=== PATIENT | female | born 1950 | race Caucasian/White ===

== ENCOUNTER 2021-06-22 16:49 | Outpatient (CLI) | payer OTHER, SELFPAY ==
--- NOTE | ~2021-06-22 | MM_ITS ---
EXAMINATION: MM screening [facility] HISTORY: Screening mammogram TECHNIQUE: Craniocaudal and mediolateral oblique 3-D tomosynthesis images were obtained and synthetic 2-D images were generated. CAD analysis was submitted and interpreted. COMPARISON: 10/03/2018 bilateral digital screening mammogram BREAST PARENCHYMAL COMPOSITION: The breasts are almost entirely fatty. FINDINGS: There are some grouped microcalcifications in the posterior aspect of the inner mid right b reast. Magnification views are recommended. Otherwise there is no evidence of suspicious mass, calcification, or architectural distortion to sugg est malignancy in either breast. There has been no other suspicious interval change. IMPRESSION: 1. Grouped microcalcifications in posterior inner mid right breast 2. Diagnostic right mammogram with magnification views is recommended BI-RADS Category 0: Incomplete: Needs additional imaging evaluation. Reviewed, dictated and finalized at location A.
== END 2021-06-22 16:50 | disposition home or self-care (01) ==
LOC: ANHIMG 16:51
PROVIDERS: PCP Internal Medicine; Visit Provider Internal Medicine
DX: Z12.31 Encounter for screening mammogram for malignant neoplasm of breast (principal); R92.8 Other abnormal and inconclusive findings on diagnostic imaging of breast
CPT/HCPCS: 77063; 77067

== ENCOUNTER 2021-07-22 13:14 | Outpatient (CLI) | payer OTHER, SELFPAY ==
--- NOTE | ~2021-07-22 | MM_ITS ---
CORRECTED REPORT YUE ADDED. 07/23/2021 EXAMINATION: MM diagnostic mammo unilat RT HISTORY: Grouped microcalcifications in posterior inner mid right breast on 06/22/2021 bilateral digital screening mammogram TECHNIQUE: Additional 3-D ML tomosynthesis images of the right breast were performed and synthetic 2-D images were generated. Magnification views in ML, MLO and craniocaudal views. CAD analysis was submitted and interpreted. COMPARISON: 06/22/2021 bilateral screening mammogram FINDINGS: Benign calcifications are noted posteriorly in the lower inner right breast. IMPRESSION: 1. Benign calcifications 2. Routine annual mammographic screening is recommended BI-RADS Category 2: Benign finding(s). Reviewed, dictated and finalized at location A. MTDD
== END 2021-07-22 13:15 | disposition home or self-care (01) ==
LOC: ANHIMG 13:16
PROVIDERS: PCP Internal Medicine; Visit Provider Internal Medicine
DX: R92.8 Other abnormal and inconclusive findings on diagnostic imaging of breast (principal)
CPT/HCPCS: 77061; 77065; G0279

== ENCOUNTER 2022-01-27 12:57 | Outpatient (CLI) | payer OTHER, SELFPAY ==
--- NOTE | ~2022-01-27 | DEXA_ITS ---
Bone Density Report Name: JEN JAY V Age: 71 Sex: Female Ethnicity: White Date of : 1950 Indication: osteopenia; height loss; postmenopausal Referring Provider: DERIK COLE Study: Bone densitometry was performed. Exam Date: January 27, 2022 Accession number: [id number] Bone Density: Region BMD T-score Z-score Classification AP Spine(L1-L4) 0.890 -1.4 0.7 Osteopenia Femoral Neck (Left) 0.518 -3.0 -1.2 Osteoporosis Total Hip (Left) 0.664 -2.3 -0.8 Osteopenia Femoral Neck (Right) 0.546 -2.7 -1.0 Osteoporosis Total Hip (Right) 0.676 -2.2 -0.7 Osteopenia Total Hip Mean 0.670 -2.3 -0.8 Osteopenia World Health Organization criteria for BMD impression classify patients as: Normal (T-score at or above -1.0), Osteopenia (T-score between -1.0 and -2.5), or Osteoporosis (T-score at or below -2.5). 10-year Fracture Risk: FRAX not reported because: Some T-score for Spine Total or Hip Total or Femoral Neck at or below -2.5 Previous Exams: Region Exam Age BMD T-score BMD Change BMD Change Date g/cm2 vs Baseline vs Previous AP Spine (L1-L4) 01/27/2022 71 0.890 -1.4 -0.055 (-5.8%) -0.055 (-5.8%) 10/03/2018 68 0.945 -0.9 Total Hip(Left) 01/27/2022 71 0.664 -2.3 -0.128 (-16.2% -0.128 (-16.2% 10/03/2018 68 0.792 -1.2 Total Hip(Right) 01/27/2022 71 0.676 -2.2 -0.083 (-10.9% -0.083 (-10.9% 10/03/2018 68 0.758 -1.5 *Denotes significance at 95% confidence level, LSC for AP Spine = 0.022 g/cm2, LSC for Total Hip = 0.027 g/cm2 Clinical Information Provided by Patient: Has used the following medications: Vitamin D Patient maximum height was 62 Menopause Age: 44 No regular weight bearing exercise Drinks caffeinated beverages Onset of menses at age 18 Number of children 0 Impression: The patient has osteoporosis, based on the Left Femoral Neck T-score. The BMD for the AP Spine (L1-L4) decreased, changing by -5.8% since the last DXA exam. The BMD for the Total Hip(Left) decreased, changing by -16.2% since the last DXA exam. The BMD for the Total Hip(Right) decreased, changing by -10.9% since the last DXA exam. Discussion: INCREASED RISK OF FRACTURE. BONE DENSITY IS UNDESIRABLY LOW AT ONE OR MORE SKELETAL SITES, CONSISTENT WITH POSTMENOPAUSAL OSTEOPOROSIS. This patient's lowest T-score meets the World Health Organization's (WHO) criteria for osteoporosis at one or more sites (T-score -2.5 or below). In untreated patients, the
== END 2022-01-27 12:58 | disposition home or self-care (01) ==
PROVIDERS: PCP Internal Medicine; Visit Provider Internal Medicine
DX: Z78.0 Asymptomatic menopausal state (principal); M85.88 Other specified disorders of bone density and structure, other site; M81.0 Age-related osteoporosis without current pathological fracture
CPT/HCPCS: 77080

== ENCOUNTER 2023-10-03 15:39 | Outpatient (CLI) | payer OTHER, SELFPAY ==
--- NOTE | ~2023-10-03 | MM_ITS ---
EXAMINATION: MM screening [facility] HISTORY: Screening mammogram TECHNIQUE: Craniocaudal and mediolateral oblique 3-D tomosynthesis images were obtained and synthetic 2-D images were generated. CAD analysis was submitted and interpreted. COMPARISON: 07/22/2021, 06/22/2021, 10/03/2018 BREAST PARENCHYMAL COMPOSITION: The breasts are almost entirely fatty. FINDINGS: No suspicious mass, calcification, or architectural distortion are identified in either mei ast to suggest malignancy. There has been no suspicious interval change. IMPRESSION: 1. No mammographic evidence of malignancy. 2. Recommend routine screening mammography in one year. BI-RADS Category 1: Negative Reviewed, dictated and finalized at location A. DESIGN
== END 2023-10-03 15:40 | disposition home or self-care (01) ==
PROVIDERS: PCP Family Medicine; Visit Provider Nurse Practitioner Family
DX: Z12.31 Encounter for screening mammogram for malignant neoplasm of breast (principal)
CPT/HCPCS: 77063; 77067

== ENCOUNTER 2024-12-04 14:47 | Outpatient (CLI) | payer OTHER, SELFPAY ==
--- NOTE | ~2024-12-04 | MM_ITS ---
EXAMINATION: MM screening delia BI w [facility] HISTORY: Screening mammogram TECHNIQUE: Craniocaudal and mediolateral oblique 3-D tomosynthesis images were obtained and synthetic 2-D images were generated. CAD analysis was submitted and interpreted. COMPARISON: 10/03/2023, 06/22/2021, 10/03/2018 BREAST PARENCHYMAL COMPOSITION:Not Dense. The breasts are almost entirely fatty FINDINGS: No suspicious mass, calcification, or architectural distortion are identified in either mei ast to suggest malignancy. There has been no suspicious interval change. IMPRESSION: No mammographic evidence of malignancy. Recommend routine screening mammography in one year. BI-RADS Category 1: Negative Reviewed, dictated and finalized at location . NG OVEN ATTENDANT
--- OUTSIDE RECORDS SUMMARY | 2024-12-04 16:36 | XMS_ITS | Referral Summary ---
Author Organization [facility] Address [address] [place] [address] Care Team Providers Care Research Worker Encyclopedia Name Role Phone Marla Kent MD Primary Care Provider [phone] [facility],non-owned Affiliates and Associated Physician Practices is amultiple site organization consisting of ambulatory clinics and hospital sitesin [place], [place], [place] and [place]. This disclosure is being madepursuant to the Care Everywhere program and may not contain all information available regarding this patient. Last updated 18.[facility] Allergies No known active allergies Medications * Be aware that medications may not be up to date on this document. Alwaysverify current medications with the patient. Medication Sig Dispensed Refills Start Date End Date Status benzonatate (TESSALON) 100 MG capsule Take 1 Cap by mouth 3 times daily as needed for Cough 30 Cap 0 12/03/2015 Active Additional Information Patient not taking.Reported on 01/20/2016 COLCRYS 0.6 MG tablet TAKE ONE TABLET TWICE DAILY 180 Tab 1 09/14/2016 Active allopurinol (ZYLOPRIM) 300 MG tablet TAKE 1 TABLET DAILY 30 tablet 5 08/02/2017 Active Active Problems Problem Noted Date Diagnosed Date BMI 36.0-36.9,adult 06/24/2015 HLD (hyperlipidemia) 10/22/2014 Overview (10/23/2014): 10y ASCVD risk 4% Obesity 10/22/2014 Gout 11/12/2012 Social History Tobacco Use Types Packs/Day Years Used Date Smoking Tobacco: Never Smokeless Tobacco: Never Tobacco Cessation:Counseling Given: Yes Alcohol Use Standard Drinks/Week Comments Yes 0 (1 standard drink = 0.6 oz pur e alcohol) Occasionaly Sex and Gender Information Value Date Recorded Sex Assigned at Not on file Gender Identity Not on file Sexual Orientation Not on file Last Filed Vital Signs Vital Sign Reading Time Taken Comments Blood Pressure 118/82 12/02/2016 10:15 AM [facility] C[facility]TER Pulse 78 12/02/2016 10:15 AM [facility]TER Temperature 36.8 C (98.2 F) 12/02/2016 10:15 AM [facility]TER Respiratory Rate 19 09/02/2015 3:47 PM [facility]TER Oxygen Saturation 95% 12/02/2016 10:15 AM [facility]TER Inhaled Oxygen Concentration - - Weight 88.5 kg (195 lb) 12/02/2016 10:15 AM [facility]TER Height 157.5 cm (5' 2 ) 12/02/2016 10:15 AM [facility] Body Mass Index 35.67 12/02/2016 10:15 AM [facility]TER Plan of Treatment Not on file Goals Goal Patient Goal Type Associated Problems Recent Progress Patient-Stated? Author Exercise 3X per week (30 min per time) Exercise No Octavio Duron Procedures Procedure Name Priority Date/Time Associated Diagnosis Comments MAMMO BILAT SCREENING Routine 12/02/2016 11:43 AM [facility]TER Breast cancer screening ENDOSCOPY, COLON, SCREENING Routine 09/02/2015 1:59 PM [facility] LIPID PROFILE Routine 10/22/2014 1:54 PM [facility] HLD (hyperlipidemia) HEPATITIS C ANTIBODY Routine 10/22/2014 1:54 PM [facility] Need for hepatitis C screening test from Last 3 Months or Most Recently Relevant to Health Maintenance Results * MAMMO SCREENING DIGITAL IMAGE BILAT (12/02/2016 11:43 AM [facility] C[facility]TER) Anatomical Region Laterality Modality Breast Bilateral Mammography 12/02/2016 2:29 PM [facility] Impressions 12/02/2016 3:57 PM [facility] C[facility]TER No mammographic evidence of malignancy in either breast. ASSESSMENT: BIRADS Category 1: Negative mammogram. RECOMMENDATION: Bilateral screening mammogram in one year. Thank you for allowing us to participate in the care of your patient. [facility] utilizes [employer] as a reminder system to notify patients of their next recommended mammogram. Dictated by: Bernice Fink Deldarnell Ghosh M.D., MPH. I, Karina Patel, have personally reviewed the images and I agree with this report. Narrative 12/02/2016 3:57 PM [facility] EXAMINATION: Digital screening mammogram on 12/02/2016. Low-dose full-field digital breast tomosynthesis examination was performed with synthetic 2D images and 3D acquisitions. Computer assisted detection was utilized. PRIOR: Multiple prior mammograms, most recently 10/22/2014 and 01/10/2013. BREAST PARENCHYMAL DENSITY: There are scattered areas of fibroglandular density. RISK ASSESSMENT CALCULATION: Based on the information provided by your patient, her lifetime risk of breast cancer is average (<15%) (calculated at 7% by the BRCAPRO model, 4% by the Tyrer-Cuzick v6 model, and 7% by the Keesha model). Please note this information is only as accurate as the data entered by the patient. FINDINGS: No suspicious masses, areas of architectural distortion or microcalcifications are evident on synthetic 2D mammogram or tomosynthesis images. There has been no significant interval change since the prior examination. Marla Kent MD MAMMO ORDERABLES * ENDOSCOPY, COLON, SCREENING (09/02/2015 1:59 PM [facility]) Report Endoscopy POC _ Patient Name: Gina Tavares Procedure Date: 09/02/2015 1:59 PM Date of : 1950 Admit Type: Outpatient Age: 65 Gender: Female Attending MD: Jamaal Royal MD _ Procedure: Colonoscopy Indications: Screening for colorectal malignant neoplasm Providers: Jamaal Royal MD (Doctor), Ana Kwok RN, Barb Grant, Mitra Hi, Biotechnician Referring MD: Marla Kent (Referring MD) Medicines: Monitored Anesthesia Care Complications: No immediate complications. _ Procedure: Pre-Anesthesia Assessment: - ASA Grade Assessment: II - A patient with mild systemic disease. - Airway Examination: Mallampati Class I (tonsillar pillars visualized). After I obtained informed consent, the scope was passed under direct vision. Throughout the procedure, the patient's blood pressure, pulse, and oxygen saturations were monitored continuously. The Colonoscope was introduced through the anus and advanced to the cecum, identified by appendiceal orifice and ileocecal valve. The colonoscopy was performed without difficulty. The patient tolerated the procedure well. The quality of the bowel preparation was poor. Impression: - Preparation of the colon was poor. - Diverticulosis. - One 5 mm polyp in the descending colon. Resected and retrieved. - Stool. Findings: A few diverticula were found in the colon. A 5 mm polyp was found in the descending colon. The polyp was sessile. The polyp was removed with a cold biopsy forceps. Resection and retrieval were complete. Estimated blood loss: none. A moderate amount of semi-liquid stool was found in the colon, making visualization difficult. Lavage of the area was performed, resulting in clearance with fair visualization. _ Recommendation: - Repeat colonoscopy in 3 - 5 years for surveillance based on pathology results. Procedure Code(s): --- Professional --- 42262, Colonoscopy, flexible; with biopsy, single or multiple --- Technical --- 11400, Colonoscopy, flexible; with biopsy, single or multiple Diagnosis Code(s): --- Professional --- Z12.11, Encounter for screening for malignant neoplasm of colon D12.4, Benign neoplasm of descending colon K57.30, Diverticulosis of large intestine without perforation or abscess without bleeding --- Technical --- Z12.11, Encounter for screening for malignant neoplasm of colon D12.4, Benign neoplasm of descending colon K57.30, Diverticulosis of large intestine without perforation or abscess without bleeding CPT copyright 2014 [employer]. All rights reserved. The codes documented in this report are preliminary and upon pellet machine operator review may be revised to meet current compliance requirements. Jamaal Royal MD 09/02/2015 3:27:56 PM This report has been signed electronically. Number of Addenda: 0 Note Initiated On: 09/02/2015 1:59 PM [facility] ENDOSCOPY 09/02/2015 1:59 PM [facility]TER Jamaal Royal MD GI PROCEDURE ORDERAB LES [facility] ENDOSCOPY * HEPATITIS C ANTIBODY (10/22/2014 1:54 PM [facility]) Hepatitis C Antibody 0.1 0.0 - 0.9 s/co ratio [facility] ACCOUNT BILL Comment: Negative: < 0.8 Indeterminate: 0.8 - 0.9 Positive: > 0.9 . In order to reduce the incidence of a false positive result, the CDC recommends that all s/co ratios between 1.0 and 10.9 be confirmed by a more specific supplemental or PCR testing. [facility] offers HCV Ab w/Reflex to Verification test #[id number]. Blood specimen (specimen) BLOOD SPECIMEN / Unknown 10/22/2014 1:54 PM [facility] 10/22/2014 3:55 PM [facility] Narrative Resulting Agency Comment [facility] [place] [address] [id number] Hayde Castaneda MD LAB - CHEMISTRY KARIME SCHWAB [facility] ACCOUNT BILL * (ABNORMAL) LIPID PROFILE (10/22/2014 1:54 PM [facility]) Cholesterol 250(H) 100 - 199 mg/dL [facility] ACCOUNT BILL Triglycerides 207(H) 0 - 149 mg/dL [facility] ACCOUNT BILL HDL Cholesterol 60 >39 mg/dL [facility] ACCOUNT BILL Comment: According to ATP-III Guidelines, HDL-C >59 mg/dL is considered a negative risk factor for CHD. VLDL Calculated 41(H) 5 - 40 mg/dL [facility] ACCOUNT BILL LDL Calculated 149(H) 0 - 99 mg/dL [facility] ACCOUNT BILL Comment NOT NEEDED [facility] ACCOUNT BILL Comment:Ancillary determined the test is not needed Blood specimen (specimen) BLOOD SPECIMEN / Unknown 10/22/2014 1:54 PM [facility] 10/22/2014 3:55 PM [facility] Narrative Resulting Agency Comment [facility] [place] [address] [id number] Hayde Castaneda MD LAB - CHEMISTRY KARIME SCHWAB Performing Organization Address [facility] Co de Phone Number [facility] ACCOUNT BILL from Last 3 Months or Most Recently Relevant to Health Maintenance Care Teams Research Worker Encyclopedia Relationship Specialty Start Date End Date Marla Kent MD PCP - General 12/17/19
--- OUTSIDE RECORDS SUMMARY | 2024-12-04 16:36 | XMS_ITS | Continuity of Care Document ---
Author Organization [facility] Address [address] [place] [address] Phone Care Team Providers Care Director Consumer Affairs Name Role Phone [facility] Unavailable Unavail able Selma, Silvina Unavailable Unavailable Procedures Procedure Date Frames Deluxe Progressive Lens, Plastic Tint Photochromatic, Plastic Anti-reflective Coating Tax - Medical Eye Exam & Treatment Refraction Advance Directives Directive Yes / No Effective Date File Name No Information Encounters Encounter Description Practice Location Reason(s) For Visit Diagnoses Date Provider Providers Copied on Encounter [facility], [address] [place] [address] [address], [place], [place], [id number], [place] tel:[phone] [facility] No Information 1200 [facility] [address] [facility], [address], [id number], [place]. tel:[phone] Referring Provider: Jeannette Rivas, [address], [place], [address]. tel:[phone] sulting Provider: Silvina Hahn, [address] [place], [address]. tel:[phone] [facility], [address] [place] [address] [address], [place], [place], [id number], [place] tel:[phone] [facility] No Information 200 7 Tonya Machado. [address] , [address], [place], [address], [place]. tel:[phone] Family History Family Member Type Diagnosis Age At Onset No Information Payers Payer name Insurance type Covered libertarian ID Authoriza tion(s) No Information Social History Type Description Quantity Date Captured Comments Sex Female Smoking Status No Information Chief Complaint And Reason For Visit No Information Reason For Referral Reason For Referral No Information History Of Present Illness Encounter Date Complaint History Of Prese nt Illness No Information Functional Status Date Functional Assessmen t No Information Instructions Date Instruction Additional Infor mation No Information Assessments Type Assessment Date No Information Patient Care Teams Name Effective Dates (start - stop) Status Members No Information
--- OUTSIDE RECORDS SUMMARY | 2024-12-04 16:36 | XMS_ITS | Clinical Summary ---
Author Organization [facility] [email or web address] Address [address] [place] [address] Care Team Providers Care Rails Developer Name Role Phone Marla Kent MD Primary Care Provider [phone] [facility] [email or web address],non-owned Affiliates and Associated Physician Practices is amultiple site organization consisting of ambulatory clinics and hospital sitesin [place], [place], [place] and [place]. This disclosure is being madepursuant to the Care Everywhere program and may not contain all information available regarding this patient. Last updated 18.[facility] [email or web address] Allergies No known active allergies Medications * [...] ASCVD risk 4% Obesity 10/22/2014 Gout 11/12/2012 Family History Medical History Relation Name Comments Cancer - Other Father Brain COPD - Chronic Obstructive Pulmonary Disease Mother Cancer Mother endometrial, bl adder Diabetes Mother Gout Mother Hypertension Mother Relation Name Status Comments Father (Age 63) Brain tumo r Mother Social History Tobacco Use Types Packs/Day Years [...] Comments Blood Pressure 118/82 12/02/2016 10:15 AM SHOWCASE MAKER Pulse 78 12/02/2016 10:15 AM SHOWCASE MAKER Temperature 36.8 C (98.2 F) 12/02/2016 10:15 AM SHOWCASE MAKER Respiratory Rate 19 09/02/2015 3:47 PM SHOWCASE MAKER Oxygen Saturation 95% 12/02/2016 10:15 AM SHOWCASE MAKER Inhaled Oxygen Concentration - - Weight 88.5 kg (195 lb) 12/02/2016 10:15 AM SHOWCASE MAKER Height 157.5 cm (5' 2 ) 12/02/2016 10:15 AM SHOWCASE MAKER Body Mass Index 35.67 12/02/2016 10:15 AM SHOWCASE MAKER Plan of Treatment Health Maintenance Due Date Last Done Comments BONE DENSITY TESTING 1950 COLOGUARD (AGES 45-75) - COLON CA SCREENING 1950 CT COLONOGRAPHY - COLON CA SCREENING 1950 FIT - COLON CA SCREENING 1950 FLEX SIG - COLON CA SCREENING 1950 MEDICARE AWV 12 MONTHS 1950 DTAP/TDAP/TD VACCINES (1 - Tdap) 1971 PNEUMOCOCCAL VACCINE 50+ (1 of 1 - PCV) 2002 ZOSTER VACCINE (1 of 2) 2002 LIPID TESTING 10/22/2015 10/22/2014, 11/13/2012 MAMMOGRAM 12/02/2018 12/02/2016, 10/03, 01/10/2013, Additional history exists COLON MONITORING 09/02/2020 09/02/2015, 11/2014, 09/02/2015 Colorectal Cancer Screening 09/02/2020 COVID-19 VACCINE ( - 2023- season) 2024 INFLUENZA VACCINE (#1) 2024 DEPRESSION SCREENING 10/02/2024 MEDICARE AWV CALENDAR YEAR 2024 COLONOSCOPY - COLON CA SCREENING 09/02/2025 09/02/2015, 09/02/2015, 09/02/2015 Respiratory Syncytial Virus (RSV) Vaccine Pt: or over 60 yrs (1 - 1-dose 75+ series) 2027 HEPATITIS C SCREENING Completed 10/22/2014 HEPATITIS B VACCINE Aged Out No longe r eligible based on patient's age to complete this topic HIB VACCINE Aged Out No longer eligi ble based on patient's age to complete this topic HPV VACCINE Aged Out No longer eligi ble based on patient's age to complete this topic MENINGOCOCCAL (Group B) VACCINE Aged Out No longer eligible based on patient's age to complete this topic MENINGOCOCCAL VACCINE Aged Out No lonny katie eligible based on patient's age to complete this topic Goals Goal Patient Goal Type Associated Problems Recent Progress Patient-Stated? Author Exercise 3X per week (30 min per time) Exercise No Octavio Duron Procedures Procedure Name Priority Date/Time Associated Diagnosis Comments MAMMO BILAT SCREENING Routine 12/02/2016 11:43 AM SHOWCASE MAKER Breast cancer screening ENDOSCOPY, COLON, SCREENING Routine 09/02/2015 1:59 PM SHOWCASE MAKER LIPID PROFILE Routine 10/22/2014 1:54 PM SHOWCASE MAKER HLD (hyperlipidemia) HEPATITIS C ANTIBODY Routine 10/22/2014 1:54 PM SHOWCASE MAKER Need for hepatitis C screening test from Last 3 Months or Most Recently Relevant to Health Maintenance Results * MAMMO SCREENING DIGITAL IMAGE BILAT (12/02/2016 11:43 AM SHOWCASE MAKER) Anatomical Region Laterality Modality Breast Bilateral Mammography 12/02/2016 2:29 PM SHOWCASE MAKER Impressions 12/02/2016 3:57 PM SHOWCASE MAKER No mammographic evidence of malignancy in either breast. ASSESSMENT: BIRADS Category 1: Negative mammogram. RECOMMENDATION: Bilateral screening mammogram in one year. Thank you for allowing us to participate in the care of your patient. [facility] utilizes [employer] as a reminder system to notify patients of their next recommended mammogram. Dictated by: Bernice Ghosh M.D. ( Abhi), MPH. I, Karina Patel, have personally reviewed the images and I agree with this report. Narrative 12/02/2016 3:57 PM SHOWCASE MAKER EXAMINATION: Digital screening mammogram on 12/02/2016. Low-dose [...] * ENDOSCOPY, COLON, SCREENING (09/02/2015 1:59 PM SHOWCASE MAKER) Report Endoscopy POC _ Patient Name: Gina Tavares Procedure Date: 09/02/2015 1:59 PM Date of : 1950 Admit Type: Outpatient Age: 65 Gender: Female Attending MD: Jamaal Royal MD _ Procedure: Colonoscopy Indications: Screening for colorectal malignant neoplasm Providers: Jamaal Royal MD (Doctor), Ana Kwok RN, Barb Grant, Mitra Hi, Job Recruiter Referring MD: Marla Kent (Referring MD) Medicines: [...] pathology results. Procedure Code(s): --- Professional --- 04993, Colonoscopy, flexible; with biopsy, single or multiple --- Technical --- 54354, Colonoscopy, flexible; with biopsy, single or multiple [...] or abscess without bleeding CPT copyright 2014 [employer]. All rights reserved. The codes documented in this report are preliminary and upon data coder operator review may be revised to meet current compliance requirements. Jamaal Royal MD 09/02/2015 3:27:56 PM This report has been signed electronically. Number of Addenda: 0 Note Initiated On: 09/02/2015 1:59 PM [facility] ENDOSCOPY 09/02/2015 1:59 PM SHOWCASE MAKER Jmaaal Royal MD GI PROCEDURE ORDERAB LES [facility] ENDOSCOPY * HEPATITIS C ANTIBODY (10/22/2014 1:54 PM SHOWCASE MAKER) Hepatitis C Antibody 0.1 0.0 - 0.9 s/co ratio [facility] ACCOUNT BILL Comment: Negative: < 0.8 Indeterminate: 0.8 - 0.9 Positive: > 0.9 . In order to reduce the incidence of a false positive result, the CDC recommends that all s/co ratios between 1.0 and 10.9 be confirmed by a more specific supplemental or PCR testing. [facility] offers HCV Ab w/Reflex to Verification test #[id number]. Blood specimen (specimen) BLOOD SPECIMEN / Unknown 10/22/2014 1:54 PM SHOWCASE MAKER 10/22/2014 3:55 PM SHOWCASE MAKER Narrative Resulting Agency Comment [address] [phone] Hayde Castaneda MD LAB - CHEMISTRY KARIME SCHWAB [facility] ACCOUNT BILL * (ABNORMAL) LIPID PROFILE (10/22/2014 1:54 PM SHOWCASE MAKER) Cholesterol 250(H) 100 - 199 mg/dL [facility] [...] BLOOD SPECIMEN / Unknown 10/22/2014 1:54 PM SHOWCASE MAKER 10/22/2014 3:55 PM SHOWCASE MAKER Narrative Resulting Agency Comment [facility] [address] [phone] Hayde Castaneda MD LAB - CHEMISTRY KARIME SCHWAB [facility] ACCOUNT BILL from Last 3 Months or Most Recently Relevant to Health Maintenance Care Teams Rails Developer Relationship Specialty Start Date End Date Marla Kent MD [facility] - General 12/17/19
--- OUTSIDE RECORDS SUMMARY | 2024-12-04 16:36 | XMS_ITS | Patient Health Summary ---
Author Organization [facility] [employer] Address [address] [place] [address] Care Team Providers Care Aircraft Life Support Fitter Name Role Phone Marla Kent MD Primary Care Provider [phone] Note from [facility],non-owned Affiliates and Associated Physician Practices is amultiple site organization consisting of ambulatory clinics and hospital sitesin [place], [place], [place] and [place]. This disclosure is being madepursuant to the Care Everywhere program and may not contain all information available regarding this patient. Last updated 18.[facility] Allergies No known active allergies Medications * Be aware that medications may not be up to date on this document. Alwaysverify current medications with the patient. * benzonatate (TESSALON) 100 MG capsule(Started 12/03/2015) Take 1 Cap by mouth 3 times daily as needed for Cough * COLCRYS 0.6 MG tablet(Started 09/14/2016) TAKE ONE TABLET TWICE DAILY 1 refill remaining * allopurinol (ZYLOPRIM) 300 MG tablet(Started 08/02/2017) TAKE 1 TABLET DAILY 5 refills remaining Active Problems Problem Noted Date Diagnosed Date BMI 36.0-36.9,adult 06/24/2015 HLD (hyperlipidemia) 10/22/2014 Obesity 10/22/2014 Gout 11/12/2012 Social History Tobacco [...] Comments Blood Pressure 118/82 12/02/2016 10:15 AM SIGN PAINTER APPRENTICE Pulse 78 12/02/2016 10:15 AM SIGN PAINTER APPRENTICE Temperature 36.8 C (98.2 F) 12/02/2016 10:15 AM SIGN PAINTER APPRENTICE Respiratory Rate 19 09/02/2015 3:47 PM SIGN PAINTER APPRENTICE Oxygen Saturation 95% 12/02/2016 10:15 AM SIGN PAINTER APPRENTICE Inhaled Oxygen Concentration - - Weight 88.5 kg (195 lb) 12/02/2016 10:15 AM SIGN PAINTER APPRENTICE Height 157.5 cm (5' 2 ) 12/02/2016 10:15 AM SIGN PAINTER APPRENTICE Body Mass Index 35.67 12/02/2016 10:15 AM SIGN PAINTER APPRENTICE Procedures * MAMMO BILAT SCREENING(Performed 12/02/2016) Performed for Breast cancer screening * PAP LB RFLX HPV ASCU(Performed 12/02/2016) Performed for Well woman exam with routine gynecological exam * PATHOLOGY TISSUE EXAM (STL)(Performed 09/02/2015) Performed for Special screening for malignant neoplasms, colon * COLONOSCOPY BIOPSY (ANY METHOD)(Performed 09/02/2015) Performed for Special screening for malignant neoplasms, colon * COLONOSCOPY SCREEN(Performed 09/02/2015) Performed for Special screening for malignant neoplasms, colon * ENDOSCOPY, COLON, SCREENING(Performed 09/02/2015) * URIC ACID BLOOD(Performed 03/10/2015) Performed for Gout * BASIC METABOLIC PANEL (CALCIUM TOTAL)(Performed 03/10/2015) Performed for Gout * MAMMO BILAT SCREENING(Performed 10/22/2014) Performed for Other screening mammogram * HEPATITIS C ANTIBODY(Performed 10/22/2014) Performed for Need for hepatitis C screening test * CBC W AUTO DIFFERENTIAL(Performed 10/22/2014) Performed for HLD (hyperlipidemia), Obesity * COMPREHENSIVE METABOLIC PANEL(Performed 10/22/2014) Performed for HLD (hyperlipidemia), Obesity * LIPID PROFILE(Performed 10/22/2014) Performed for HLD (hyperlipidemia) * URIC ACID BLOOD(Performed 10/22/2014) Performed for Gout * PAP LB HPV HR DNA(Performed 02/12/2013) Performed for Routine Gynecological Examination * MAMMO BILAT SCREENING(Performed 01/10/2013) Performed for Other screening mammogram * URIC ACID BLOOD(Performed 11/13/2012) Performed for Gout * LIPID PROFILE(Performed 11/13/2012) Performed for Obesity * COMPREHENSIVE METABOLIC PANEL(Performed 11/13/2012) Performed for Gout * CBC W AUTO DIFFERENTIAL(Performed 11/13/2012) Performed for Gout Results * MAMMO SCREENING DIGITAL IMAGE BILAT (12/02/2016 11:43 AM SIGN PAINTER APPRENTICE) Only the most recent of3 resultswithin the time period is included. Anatomical Region Laterality Modality Breast Bilateral Mammography 12/02/2016 2:29 PM SIGN PAINTER APPRENTICE Impressions 12/02/2016 3:57 PM SIGN PAINTER APPRENTICE No mammographic evidence of malignancy in either breast. ASSESSMENT: BIRADS Category 1: Negative mammogram. RECOMMENDATION: Bilateral screening mammogram in one year. Thank you for allowing us to participate in the care of your patient. [facility] utilizes [email or web address] as a reminder system to notify patients of their next recommended mammogram. Dictated by: Bernice Ghosh M.D. ( Abhi), MPH. I, Karina Patel, have personally reviewed the images and I agree with this report. Narrative 12/02/2016 3:57 PM SIGN PAINTER APPRENTICE EXAMINATION: Digital screening mammogram on 12/02/2016. Low-dose [...] examination. Marla Kent MD MAMMO ORDERABLES * PAP SMEAR LB RFLX HPV ASCU (PO REF LAB) (12/02/2016 11:09 AM SIGN PAINTER APPRENTICE) Diagnosis [facility] INSURANCE BILL Comment:NEGATIVE FOR INTRAEP ITHELIAL LESION AND MALIGNANCY. Specimen Adequacy [facility] INSURANCE BILL Comment: Satisfactory for evaluation. Endocervical and/or squamous metaplastic cells (endocervical component) are present. Clinician Provided ICD10 [facility] INSURANCE BILL Comment: Z00.00 Z01.419 Z12.39 E78.5 Performed by [facility] INSURANCE BILL Comment:Ty eBckford chnologist (ASCP) Comment . [facility] INSURANCE BILL Note [facility] INSURANCE BILL Comment: The Pap smear is a screening test designed to aid in the detection of premalignant and malignant conditions of the uterine cervix. It is not a diagnostic procedure and should not be used as the sole means of detecting cervical cancer. Both false-positive and false-negative reports do occur. . Note [facility] INSURANCE BILL Comment: The HPV DNA reflex criteria were not met with this specimen result therefore, no HPV testing was performed. . Pathology/Cytolog y PART OF UTERINE CERVIX / Unknown 12/02/2016 11:09 AM SIGN PAINTER APPRENTICE 12/02/2016 Narrative [facility] INSURANCE BILL - 12/06/2016 5:10 PM SIGN PAINTER APPRENTICE Source.............Cervix No. of containers..01 CYTYC Thin Prep Vial Resulting Agency Comment formerly [facility] [address] [phone] Marla Kent MD LAB - PATHOLOGY/CYTO LOGY ORDERABLES [facility] INSURANCE BILL [address] [place] [address] * GROSS + MICRO EXAM (STL) (09/02/2015 3:23 PM SIGN PAINTER APPRENTICE) Case Report Surgical Pathology Report Case: [id number] Authorizing Provider: Jamaal Royal MD Collected: 09/02/2015 03:23 PM Ordering Location: [facility] Received: 09/03/2015 12:11 PM Pathologist: Yaquelin Bradley MD Specimen: Polyp Descending, desc colon polyp 09/04/2015 3:51 PM SIGN PAINTER APPRENTICE [facility] Final Diagnosis 1. Descending colon, polyp, biopsy: -- Hyperplastic polyp MC/scs 09/04/2015 3:51 PM SIGN PAINTER APPRENTICE [facility] Gross Description Received in formalin in a container labeled Gina Tavares V, polyp descending. The container holds a single pink-bourne tissue fragment measuring 0.3 x 0.3 x 0.2 cm. Specimen is entirely submitted in a cassette labeled A1. DYT/lv 09/04/2015 3:51 PM SIGN PAINTER APPRENTICE [facility] Microscopic Description Sections show fragments of colonic mucosa with features of benign hyperplastic polyp. /[facility] 09/04/2015 3:51 PM SIGN PAINTER APPRENTICE [facility] Pathology/Cytolo gy POLYP / Unknown 09/02/2015 3:23 PM SIGN PAINTER APPRENTICE 09/03/2015 12:11 PM SIGN PAINTER APPRENTICE Jamaal Royal MD LAB - PATHOLOGY/CYTO LOGY ORDERABLES Performing Organization Address City/State/[facility] Co de Phone Number [facility] [address] [place] [address] * ENDOSCOPY, COLON, SCREENING (09/02/2015 1:59 PM SIGN PAINTER APPRENTICE) Report Endoscopy POC _ Patient Name: Gina Tavares Procedure Date: 09/02/2015 1:59 PM Date of : 1950 Admit Type: Outpatient Age: 65 Gender: Female Attending MD: Jamaal Royal MD _ Procedure: Colonoscopy Indications: Screening for colorectal malignant neoplasm Providers: Jamaal Royal MD (Doctor), Ana Kwok, RN, Barb Grant, Mitra Hi, Revenue Enforcement Collection Agent Referring MD: Marla Kent (Referring MD) Medicines: [...] pathology results. Procedure Code(s): --- Professional --- 00247, Colonoscopy, flexible; with biopsy, single or multiple --- Technical --- 45914, Colonoscopy, flexible; with biopsy, single or multiple [...] or abscess without bleeding CPT copyright 2014 [employer]. All rights reserved. The codes documented in this report are preliminary and upon medical delivery driver review may be revised to meet current compliance requirements. Jamaal Royal MD 09/02/2015 3:27:56 PM This report has been signed electronically. Number of Addenda: 0 Note Initiated On: 09/02/2015 1:59 PM [facility] 09/02/2015 1:59 PM SIGN PAINTER APPRENTICE Jamaal Royal MD GI PROCEDURE ORDERAB LES [facility] * URIC ACID BLOOD (03/10/2015 12:52 PM CDT) Only the most recent of3 resultswithin the time period is included. Uric Acid 6.1 2.5 - 7.1 mg/dL [facility] ACCOUNT BILL Comment:Therapeutic target f or gout patients: <6.0 Blood specimen (specimen) BLOOD SPECIMEN / Unknown 03/10/2015 12:52 PM CDT 03/10/2015 3:44 PM CDT Narrative Resulting Agency Comment [facility] [address] [phone] Hayde Castaneda MD LAB - CHEMISTRY KARIME SCHWAB [facility] ACCOUNT BILL * (ABNORMAL) BASIC METABOLIC PANEL (BMP) (03/10/2015 12:52 PM CDT) Glucose 88 65 - 99 mg/dL [facility] ACCOUNT BILL BUN 18 8 - 27 mg/dL [facility] ACCOUNT BILL Creatinine 1.08(H) 0.57 - 1.00 mg/dL [facility] ACCOUNT BILL eGFR by MDRD 55(L) >59 mL/min/1.7 3 [facility] ACCOUNT BILL eGFR by MDRD 64 >59 mL/min/1.7 3 [facility] ACCOUNT BILL BUN/Creatinine Ratio 17 11 - 26 [facility] ACCOUNT BILL Sodium 140 134 - 144 mmol/L [facility] ACCOUNT BILL Potassium 4.2 3.5 - 5.2 mmol/L [facility] ACCOUNT BILL Chloride 102 97 - 108 mmol/L [facility] ACCOUNT BILL CO2 22 18 - 29 mmol/L [facility] ACCOUNT BILL Calcium 11.0(H) 8.7 - 10.3 mg/dL [facility] ACCOUNT BILL Blood specimen (specimen) BLOOD SPECIMEN / Unknown 03/10/2015 12:52 PM CDT 03/10/2015 3:44 PM CDT Narrative Resulting Agency Comment [facility] [address] [phone] Hayde Castaneda MD LAB - CHEMISTRY KARIME SCHWAB [facility] ACCOUNT BILL * CBC W AUTO DIFFERENTIAL (10/22/2014 1:54 PM SIGN PAINTER APPRENTICE) Only the most recent of2 resultswithin the time period is included. WBC 7.4 3.4 - 10.8 x10E3/uL [facility] ACCOUNT BILL RBC 5.04 3.77 - 5.28 x10E6/uL [facility] ACCOUNT BILL Hemoglobin 15.0 11.1 - 15.9 g/dL [facility] ACCOUNT BILL Hematocrit 45.4 34.0 - 46.6 % [facility] ACCOUNT BILL MCV 90 79 - 97 fL [facility] ACCOUNT BILL MCH 29.8 26.6 - 33.0 pg [facility] ACCOUNT BILL MCHC 33.0 31.5 - 35.7 g/dL [facility] ACCOUNT BILL RDW 13.4 12.3 - 15.4 % [facility] ACCOUNT BILL Platelet Count 344 150 - 379 x10E3/uL [facility] ACCOUNT BILL Granulocytes % 53 % [facility] ACCOUNT BILL Lymphocytes % 32 % [facility] ACCOUNT BILL Monocytes % 11 % [facility] ACCOUNT BILL Eosinophils % 3 % [facility] ACCOUNT BILL Basophils % 1 % [facility] ACCOUNT BILL Immature Cells NOT NEEDED [facility] ACCOUNT BILL Comment:Ancillary determined the test is not needed Granulocytes Absolute 3.9 1.4 - 7.0 x10E3/uL [facility] ACCOUNT BILL Lymphocytes Absolute 2.4 0.7 - 3.1 x10E3/uL [facility] ACCOUNT BILL Monocytes Absolute 0.8 0.1 - 0.9 x10E3/uL [facility] ACCOUNT BILL Eosinophils Absolute 0.2 0.0 - 0.4 x10E3/uL [facility] ACCOUNT BILL Basophils Absolute 0.1 0.0 - 0.2 x10E3/uL [facility] ACCOUNT BILL Immature Granulocytes 0 % [facility] ACCOUNT BILL Immature Granulocytes Absolute 0.0 0.0 - 0.1 x10E3/uL [facility] ACCOUNT BILL nRBC NOT NEEDED [facility] ACCOUNT BILL Comment:Ancillary determined the test is not needed Comment Hematology NOT NEEDED [facility] ACCOUNT BILL Comment:Ancillary determined the test is not needed Blood specimen (specimen) BLOOD SPECIMEN / Unknown 10/22/2014 1:54 PM SIGN PAINTER APPRENTICE 10/22/2014 3:55 PM SIGN PAINTER APPRENTICE Narrative Resulting Agency Comment [facility] [address] [phone] Hayde Castaneda MD LAB - HEMATOLOGY ORD ERABLES [facility] ACCOUNT BILL * (ABNORMAL) COMPREHENSIVE METABOLIC PANEL (10/22/2014 1:54 PM SIGN PAINTER APPRENTICE) Only the most recent of2 resultswithin the time period is included. Glucose 82 65 - 99 mg/dL [facility] ACCOUNT BILL BUN 18 8 - 27 mg/dL [facility] ACCOUNT BILL Creatinine 0.88 0.57 - 1.00 mg/dL [facility] ACCOUNT BILL eGFR by MDRD 71 >59 mL/min/1.7 3 [facility] ACCOUNT BILL eGFR by MDRD 81 >59 mL/min/1.7 3 [facility] ACCOUNT BILL BUN/Creatinine Ratio 20 11 - 26 [facility] ACCOUNT BILL Sodium 140 134 - 144 mmol/L [facility] ACCOUNT BILL Potassium 4.7 3.5 - 5.2 mmol/L [facility] ACCOUNT BILL Chloride 101 97 - 108 mmol/L [facility] ACCOUNT BILL CO2 21 18 - 29 mmol/L [facility] ACCOUNT BILL Calcium 10.6(H) 8.7 - 10.3 mg/dL [facility] ACCOUNT BILL Comment:Please note refere nce interval change Protein Total 7.6 6.0 - 8.5 g/dL [facility] ACCOUNT BILL Albumin 4.7 3.6 - 4.8 g/dL [facility] ACCOUNT BILL Globulin Total 2.9 1.5 - 4.5 g/dL [facility] ACCOUNT BILL Albumin/Globulin Ratio 1.6 1.1 - 2.5 [facility] ACCOUNT BILL Bilirubin Total 0.5 0.0 - 1.2 mg/dL [facility] ACCOUNT BILL Alkaline Phosphatase 99 39 - 117 IU/L [facility] ACCOUNT BILL AST 34 0 - 40 IU/L [facility] ACCOUNT BILL ALT 66(H) 0 - 32 IU/L [facility] ACCOUNT BILL Blood specimen (specimen) BLOOD SPECIMEN / Unknown 10/22/2014 1:54 PM SIGN PAINTER APPRENTICE 10/22/2014 3:55 PM SIGN PAINTER APPRENTICE Narrative Resulting Agency Comment [facility] [address] [place] [phone] Hayde Castaneda MD LAB - CHEMISTRY KARIME [facility] Organization Address City/State/ZIP Co de Phone Number [facility] ACCOUNT BILL * HEPATITIS C ANTIBODY (10/22/2014 1:54 PM SIGN PAINTER APPRENTICE) Hepatitis C Antibody 0.1 0.0 - 0.9 s/co ratio [facility] ACCOUNT BILL Comment: Negative: < 0.8 Indeterminate: 0.8 - 0.9 Positive: > 0.9 . In order to reduce the incidence of a false positive result, the CDC recommends that all s/co ratios between 1.0 and 10.9 be confirmed by a more specific supplemental or PCR testing. [facility] w/Reflex to Verification test #[id number]. Blood specimen (specimen) BLOOD SPECIMEN / Unknown 10/22/2014 1:54 PM SIGN PAINTER APPRENTICE 10/22/2014 3:55 PM SIGN PAINTER APPRENTICE Narrative Resulting Agency Comment [facility] [address] [facility] [phone] Hayde Castaneda MD LAB - CHEMISTRY KARIME SCHWAB [facility] ACCOUNT BILL * (ABNORMAL) LIPID PROFILE (10/22/2014 1:54 PM SIGN PAINTER APPRENTICE) Only the most recent of2 resultswithin the time period is included. Cholesterol 250(H) 100 - 199 mg/dL [facility] [...] BLOOD SPECIMEN / Unknown 10/22/2014 1:54 PM SIGN PAINTER APPRENTICE 10/22/2014 3:55 PM SIGN PAINTER APPRENTICE Narrative Resulting Agency Comment [facility] [phone] Hayde Castaneda MD LAB - CHEMISTRY KARIME SCHWAB [facility] ACCOUNT BILL * PAP SMEAR LB HPV HR (PO REF LAB) (02/12/2013 2:38 PM CDT) Diagnosis [facility] INSURANCE BILL Comment: NEGATIVE FOR INTRAEPITHELIAL LESION AND MALIGNANCY. PREDOMINANCE OF COCCOBACILLI CONSISTENT WITH SHIFT IN VAGINAL HERB IS PRESENT. Specimen Adequacy [facility] INSURANCE BILL Comment: Satisfactory for evaluation. Endocervical and/or squamous metaplastic cells (endocervical component) are present. Clinician Provided ICD9 [facility] INSURANCE BILL Comment: 274.9 ; Gout, unspecified V70.0 ; Routine general medical examination at health care facility V72.31 ; Routine gynecological examination V76.51 ; Special screening for malignant neoplasms, colon Performed by [facility] INSURANCE BILL Comment:Thalia Blanco, Emergency Medicine Physician Assistant (ASCP) Comment . [facility] INSURANCE BILL Note [facility] INSURANCE BILL Comment: The Pap smear is a screening test designed to aid in the detection of premalignant and malignant conditions of the uterine cervix. It is not a diagnostic procedure and should not be used as the sole means of detecting cervical cancer. Both false-positive and false-negative reports do occur. . Human papillomavirus High Risk Negative Negative [facility] INSURANCE BILL Comment: This high-risk HPV test detects thirteen high-risk types (16/18/31/33/35/39/45/51/52/56/58/59/68) without differentiation. . MICROSCOPIC CYTOLOGIC EXAMINATION OF SMEAR OF SPECIMEN FROM FEMALE GENITAL TRACT PREPARED USING PAPANICOLAOU TECHNIQUE / Unknown 02/12/2013 2:38 PM CDT 02/13/2013 1:04 AM CDT Narrative [facility] INSURANCE BILL - 02/15/2013 8:06 PM CDT No. of containers..01 CYTYC Thin Prep Vial Resulting Agency Comment [facility] [place] [phone] Hayde Castaneda MD LAB - PATHOLOGY/CYTO LOGY ORDERABLES [facility] INSURANCE BILL Care Teams Aircraft Life Support Fitter Relationship Specialty Start Date End Date Marla Kent MD PCP - General 12/17/19
== END 2024-12-04 14:48 | disposition home or self-care (01) ==
LOC: ANHIMG 14:49
PROVIDERS: PCP Nurse Practitioner Family; Visit Provider Nurse Practitioner Family
DX: Z12.31 Encounter for screening mammogram for malignant neoplasm of breast (principal)
CPT/HCPCS: 77063; 77067

== ENCOUNTER 2025-03-12 11:08 | Outpatient (CLI) | payer OTHER, SELFPAY ==
--- NOTE | ~2025-03-12 | DEXA_ITS ---
Bone Density Report Name: JEN JAY V Age: 74 Sex: Female Ethnicity: White Date of : 1950 Indication: osteopenia; height loss; Referring Provider: KEESHA PEARSON Study: Bone densitometry was performed. Exam Date: March 12, 2025 Accession number: [id number] Bone Density: Region BMD T-score Z-score Classification AP Spine(L1-L4) 0.827 -2.0 0.3 Osteopenia Femoral Neck (Left) 0.485 -3.3 -1.3 Osteoporosis Total Hip (Left) 0.631 -2.5 -0.9 Osteoporosis Femoral Neck (Right) 0.504 -3.1 -1.2 Osteoporosis Total Hip (Right) 0.617 -2.7 -1.0 Osteoporosis Total Hip Mean 0.624 -2.6 -1.0 Osteoporosis World Health Organization criteria for BMD impression classify patients as: Normal (T-score at or above -1.0), Osteopenia (T-score between -1.0 and -2.5), or Osteoporosis (T-score at or below -2.5). 10-year Fracture Risk: FRAX not reported because: Some T-score for Spine Total or Hip Total or Femoral Neck at or below -2.5 Previous Exams: Region Exam Age BMD T-score BMD Change BMD Change Date g/cm2 vs Baseline vs Previous AP Spine (L1-L4) 03/12/2025 74 0.827 -2.0 -0.119 (-12.6% -0.064 (-7.2%) 01/27/2022 71 0.890 -1.4 -0.055 (-5.8%) -0.055 (-5.8%) 10/03/2018 68 0.945 -0.9 Total Hip(Left) 03/12/2025 74 0.631 -2.5 -0.160 (-20.3% -0.032 (-4.9%) 01/27/2022 71 0.664 -2.3 -0.128 (-16.2% -0.128 (-16.2% 10/03/2018 68 0.792 -1.2 Total Hip(Right) 03/12/2025 74 0.617 -2.7 -0.141 (-18.6% -0.058 (-8.6%) 01/27/2022 71 0.676 -2.2 -0.083 (-10.9% -0.083 (-10.9% 10/03/2018 68 0.758 -1.5 *Denotes significance at 95% confidence level, LSC for AP Spine = 0.022 g/cm2, LSC for Total Hip = 0.027 g/cm2 Clinical Information Provided by Patient: Has used the following medications: Vitamin D Patient maximum height was 62 Menopause Age: 44 No regular weight bearing exercise Does not regularly consume dairy products Drinks caffeinated beverages Onset of menses at age 18 Number of children 0 Impression: The patient has osteoporosis, based on the Left Femoral Neck T-score. The BMD for the AP Spine (L1-L4) decreased, changing by -7.2% since the last DXA exam. The BMD for the Total Hip(Left) decreased, changing by -4.9% since the last DXA exam. The BMD for the Total Hip(Right) decreased, changing by -8.6% since the last DXA exam. Discussion: INCREASED RISK OF FRACTURE. BONE DENSITY IS UNDESIRABLY LOW AT ONE OR MORE SKELETAL SITES, CONSISTENT WITH POSTMENOPAUSAL OSTEOPOROSIS. This patient's lowest T-score meets the World Health Organization's (WHO) criteria for osteoporosis at one or more sites (T-score -2.5 or below). In untreated patients, the risk of osteoporotic fracture increases approximately two-fold for each 1.0 SD decrease in T-score. Low bone density is not the only risk factor for fracture; also consider factors such as patient's age, frailty or poor health, risk of falling, risk of injury, previous osteoporotic fracture, family history of osteoporosis, cigarette smoking, low body weight, etc. Not everyone with low bone mineral density has osteoporosis; osteomalacia and other metabolic bone disorders should also be considered. Patients who have osteoporosis should be evaluated for specific diseases and conditions (secondary causes) that may cause or contribute to bone loss. The [place] [employer]ocrinologists (AACE) and National Osteoporosis Foundation (NOF) recommend pharmacologic intervention for all postmenopausal women whose T-score is in this range. The patient should follow a healthful lifestyle (good nutrition with adequate calcium and vitamin D, and appropriate weight-bearing exercise). Follow-Up: Consider a repeat BMD and Vertebral Fracture Assessment (VFA) exam in 2 years or sooner if medically necessary, to reassess this patient's status. Reported by: KTAIA on 03/12/2025 11:47:00 AM. Reviewed, dictated and finalized at location A.
--- OUTSIDE RECORDS SUMMARY | 2025-03-12 13:21 | XMS_ITS | Continuity of Care Document ---
Author Organization [facility] [place], [place] Address [address] [place] [address] Phone Care Team Providers Care Land[employer] Collection System Operator Name Role Phone [facility], [facility] Unavailable Unavail able Selma, Silvina Unavailable Unavailable Procedures Procedure Date Frames Deluxe Progressive Lens, Plastic Tint Photochromatic, Plastic Anti-reflective Coating Tax - Medical Eye Exam & Treatment Refraction Advance Directives Directive Yes / No Effective Date File Name No Information Encounters Encounter Description Practice Location Reason(s) For Visit Diagnoses Date Provider Providers Copied on Encounter [facility], [address] [place] [address] [address], [place], [place], [id number], [place] tel:[phone] [facility] No Information 1200 7 [facility] [address] [facility], [address], [id number], [place]. tel:[phone] Referring Provider: Jeannette Rivas, [address], [place], [address]. tel:[phone] sulting Provider: Silvina Hahn, [address] [place], [address]. tel:[phone] [facility], [id number] [address] [address], [place], [place], [id number], [place] tel:[phone] [facility] No Information 200 [address] Tonya Machado. [address] , [address], [place], [address], [place]. tel:[phone] Family History Family Member Type Diagnosis Age [...]
--- OUTSIDE RECORDS SUMMARY | 2025-03-12 13:21 | XMS_ITS | Clinical Summary ---
Author Organization [facility] Address [address] [place] [address] Care Team Providers Care School Transportation Director Name Role Phone Marla Kent MD Primary Care Provider [phone] Source Comments [facility],non-owned Affiliates and Associated Physician Practices is amultiple site organization consisting of ambulatory clinics and hospital sitesin [place], [place], [place] and [place]. This disclosure is being madepursuant to the Care Everywhere program and may not contain all information available regarding this patient. Last updated 18.[facility] Allergies No known active allergies Medications * Be aware that medications may not be up to date on this document. Alwaysverify current medications with the patient. benzonatate (TESSALON) 100 MG capsule Take 1 Cap by mouth 3 times daily as needed for Cough 30 Cap 0 6 Active Additional Information Patient not taking.Reported on 01/20/2016 COLCRYS 0.6 MG tablet TAKE ONE TABLET TWICE DAILY 180 Tab 1 6 Active allopurinol (ZYLOPRIM) 300 MG tablet TAKE 1 TABLET DAILY 30 tablet 5 7 Active Active Problems Problem Noted Date Diagnosed [...] = 0.6 oz pur e alcohol) Occasionaly Comments No Sex and Gender Information Value Date Recorded Sex Assigned at Not on file Legal Sex Female 2:03 PM TELECOMMUNICATIONS SWITCH TECHNICIAN Gender Identity Not on file Sexual Orientation Not on file Occupation Industry Job Start Date Job End Date Not on file Not on file Not on file Not on file Last Filed Vital Signs Vital Sign Reading Time Taken Comments Blood Pressure 118/82 12/02/2016 10:15 AM TELECOMMUNICATIONS SWITCH TECHNICIAN Pulse 78 12/02/2016 10:15 AM TELECOMMUNICATIONS SWITCH TECHNICIAN Temperature 36.8 C (98.2 F) 12/02/2016 10:15 AM TELECOMMUNICATIONS SWITCH TECHNICIAN Respiratory Rate 19 09/02/2015 3:47 PM TELECOMMUNICATIONS SWITCH TECHNICIAN Oxygen Saturation 95% 12/02/2016 10:15 AM TELECOMMUNICATIONS SWITCH TECHNICIAN Inhaled Oxygen Concentration - - Weight 88.5 kg (195 lb) 12/02/2016 10:15 AM TELECOMMUNICATIONS SWITCH TECHNICIAN Height 157.5 cm (5' 2) 12/02/2016 10:15 AM TELECOMMUNICATIONS SWITCH TECHNICIAN Body Mass Index 35.67 12/02/2016 10:15 AM TELECOMMUNICATIONS SWITCH TECHNICIAN Plan of Treatment Health Maintenance Due Date Last Done Comments BONE DENSITY TESTING 1950 COLOGUARD (AGES 45-75) - COLON CA SCREENING 1950 CT COLONOGRAPHY - COLON CA SCREENING 1950 FIT - COLON CA SCREENING 1950 FLEX SIG - COLON CA SCREENING 1950 DTAP/TDAP/TD VACCINES (1 - Tdap) 1971 PNEUMOCOCCAL VACCINE 50+ (1 of 1 - PCV) 2002 ZOSTER VACCINE (1 of 2) 2002 LIPID TESTING 10/22/2015 10/22/2014, 11/13/2012 MAMMOGRAM 12/02/2018 12/02/2016, 10/03, 01/10/2013, Additional history exists COLON MONITORING 09/02/2020 09/02/2015, 11/2014, 09/02/2015 Colorectal Cancer Screening 09/02/2020 COVID-19 VACCINE ( season) 2024 DEPRESSION SCREENING 10/02/2024 INFLUENZA VACCINE (Season Ended) 2025 COLONOSCOPY - COLON CA SCREENING 09/02/2025 09/02/2015, [...] complete this topic MENINGOCOCCAL (Group B) VACCINE SHARED DECISION-MAKING Aged Out No longer eligible based on patient's age to complete this topic MENINGOCOCCAL GROUPS A/C/Y/W VACCINE Aged Out No longer eligible based on patient's age to complete this topic Goals Goal Patient Goal Type Associated Problems Recent Progress Patient-Stated? Author Exercise 3X per week (30 min per time) Exercise No Octavio Duron Procedures Procedure Name Priority Date/Time Associated Diagnosis Comments MAMMO BILAT SCREENING Routine 12/02/2016 11:43 AM TELECOMMUNICATIONS SWITCH TECHNICIAN Breast cancer screening ENDOSCOPY, COLON, SCREENING Routine 09/02/2015 1:59 PM TELECOMMUNICATIONS SWITCH TECHNICIAN LIPID PROFILE Routine 10/22/2014 1:54 PM TELECOMMUNICATIONS SWITCH TECHNICIAN HLD (hyperlipidemia) HEPATITIS C ANTIBODY Routine 10/22/2014 1:54 PM TELECOMMUNICATIONS SWITCH TECHNICIAN Need for hepatitis C screening test from Last 3 Months or Most Recently Relevant to Health Maintenance Results * MAMMO SCREENING DIGITAL IMAGE BILAT (12/02/2016 11:43 AM TELECOMMUNICATIONS SWITCH TECHNICIAN) Anatomical Region Laterality Modality Breast Bilateral Mammography 12/02/2016 2:29 PM TELECOMMUNICATIONS SWITCH TECHNICIAN Impressions 12/02/2016 3:57 PM TELECOMMUNICATIONS SWITCH TECHNICIAN No mammographic evidence of malignancy in either breast. ASSESSMENT: BIRADS Category 1: Negative mammogram. RECOMMENDATION: Bilateral screening mammogram in one year. Thank you for allowing us to participate in the care of your patient. [facility] utilizes [employer] as a reminder system to notify patients of their next recommended mammogram. Dictated by: Bernice Ghosh M.D. ( Abhi), MPH. I, Karina Patel, have personally reviewed the images and I agree with this report. Narrative 12/02/2016 3:57 PM TELECOMMUNICATIONS SWITCH TECHNICIAN EXAMINATION: Digital screening mammogram on 12/02/2016. Low-dose [...] significant interval change since the prior examination. us Marla Kent MD MAMMO ORDERABLES Final Resul t * ENDOSCOPY, COLON, SCREENING (09/02/2015 1:59 PM TELECOMMUNICATIONS SWITCH TECHNICIAN) Report Endoscopy POC _ Patient Name: Gina Jay Procedure Date: 09/02/2015 1:59 PM Date of : 1950 Admit Type: Outpatient Age: 65 Gender: Female Attending MD: Jamaal Royal MD _ Procedure: Colonoscopy Indications: Screening for colorectal malignant neoplasm Providers: Jamaal Royal MD (Doctor), Ana Kwok, RN, Barb Grant, Mitra Hi, Voice Engineer Referring MD: Marla Kent (Referring MD) Medicines: [...] pathology results. Procedure Code(s): --- Professional --- 17210, Colonoscopy, flexible; with biopsy, single or multiple --- Technical --- 73129, Colonoscopy, flexible; with biopsy, single or multiple [...] or abscess without bleeding CPT copyright 2014 [employer]. All rights reserved. The codes documented in this report are preliminary and upon system sales consultant review may be revised to meet current compliance requirements. Jamaal Royal MD 09/02/2015 3:27:56 PM This report has been signed electronically. Number of Addenda: 0 Note Initiated On: 09/02/2015 1:59 PM [facility] ENDOSCOPY 09/02/2015 1:59 PM TELECOMMUNICATIONS SWITCH TECHNICIAN us Jamaal Royal MD GI PROCEDURE ORDERABLES Edited R esult - Final [facility] ENDOSCOPY * HEPATITIS C ANTIBODY (10/22/2014 1:54 PM TELECOMMUNICATIONS SWITCH TECHNICIAN) Hepatitis C Antibody 0.1 0.0 - 0.9 s/co ratio [facility] ACCOUNT BILL Comment: Negative: < 0.8 Indeterminate: 0.8 - 0.9 Positive: > 0.9 . In order to reduce the incidence of a false positive result, the CDC recommends that all s/co ratios between 1.0 and 10.9 be confirmed by a more specific supplemental or PCR testing. [facility] offers HCV Ab w/Reflex to Verification test #[id number]. Blood specimen (specimen) BLOOD SPECIMEN / Unknown 10/22/2014 1:54 PM TELECOMMUNICATIONS SWITCH TECHNICIAN 10/22/2014 3:55 PM TELECOMMUNICATIONS SWITCH TECHNICIAN Narrative Resulting Agency Comment [facility] [place] [address] [facility] [id number] Hayde Castaneda MD LAB - CHEMISTRY ORDERABLES Final Result Performing Organization Address City/[facility]/ZIP Co de Phone Number [facility] ACCOUNT BILL [address] [place] [address] * (ABNORMAL) LIPID PROFILE (10/22/2014 1:54 PM TELECOMMUNICATIONS SWITCH TECHNICIAN) Cholesterol 250(H) 100 - 199 mg/dL [facility] [...] BLOOD SPECIMEN / Unknown 10/22/2014 1:54 PM TELECOMMUNICATIONS SWITCH TECHNICIAN 10/22/2014 3:55 PM TELECOMMUNICATIONS SWITCH TECHNICIAN Narrative Resulting Agency Comment [facility] [place] [address] [facility] [id number] Hayde Castaneda MD LAB - CHEMISTRY ORDERABLES Final Result Performing Organization Address [facility] de Phone Number [facility] ACCOUNT BILL [address] [place] [address] from Last 3 Months or Most Recently Relevant to Health Maintenance Insurance [facility] Care Teams School Transportation Director Relationship Specialty Start Date End Date Marla Kent MD PCP - General 12/17/19
== END 2025-03-12 11:09 | disposition home or self-care (01) ==
PROVIDERS: PCP Nurse Practitioner Family; Visit Provider Nurse Practitioner Family
DX: M81.0 Age-related osteoporosis without current pathological fracture (principal); M85.89 Other specified disorders of bone density and structure, multiple sites
CPT/HCPCS: 77080